=== PATIENT | male | born 1995 | race Caucasian/White ===

== ENCOUNTER 2017-06-17 19:07 | Emergency (ER) | payer SELFPAY ==
--- NOTE | 2017-06-17 19:42 | ED Physician Chart ---
ED Chief Complaint/HPI - Patient Information Date Seen:: 06/17/17 Time Seen:: 19:34 Chief Complaint:: Forehead rashes History of Present Illness:: 21 yo male had rashes on forehead for 3 days. Three days ago, patient went hiking, a few hours later, he developed rashes on the right forearm. Subsequently, the rashes appeared on the forehead. Per patient, it was probably due to his hand touched the forehead. The rashes were itchy and the itchiness spread to whole body. The worst symptoms occurred 2 days ago and gradually became better without medication. Allergies:: Allergies Allergy/AdvReac Type Severity Reaction Status Date / Time No Known Allergies Allergy Verified 06/17/17 19:14 Vitals:: Vital Signs - 8 hr 06/17/17 19:16 Temp 97.4 F HR 102 RR 15 BP 165/88 O2 Sat % 100 ED Review of Systems - Review of Systems General/Constitutional: No fever, No chills Skin: Skin lesions, Rash, Other (itchiness) Head: No headache Eyes: No pain ENT: No earache Neck: No neck pain Cardio Vascular: No chest pain Pulmonary: No SOB GI: No nausea, No vomiting Musculoskeletal: No bone or joint pain, No muscle pain ED Past Medical History - Past Medical History Past Medical History: No significant medical hx Social History: Non Smoker, No Alcohol, No Drug Use Surgical History: None Family Medical History - Family Member Mother History Unknown: Yes ED Physical Exam - Physical Examination General/Constitutional: Awake, Alert Eyes: PERRL Other Skin comments:: Forehead erythematous, linear vesicular lesions and surrounding irregular plaques. Erythematous and vesicular lesions on right antecubital area. Neck: No nuchal rigidity Respiratory: Clear to Auscultation Cardio Vascular: RRR, No murmur, gallop, rubs, NL S1 S2 GI: No tenderness/rebounding/guarding : No CVA tenderness Extremities: normal strength in all extremities Neuro/Psych: No focal deficits ED Assessment - Assessment General Assessment: Contact dermatitis forehead, right upper extremity Assessment/Comments:: D/c home Benadryl OTC 25mg PO q12h prn F/u PCP or return to ER if symptoms worsen ED Septic Shock - . Is Septic Shock (SBP<90, OR Lactate>4 mmol\L) present?: No - <6hrs of presentation: Vital Signs: Vital Signs - 8 hr 06/17/17 19:16 Temp 97.4 F HR 102 RR 15 BP 165/88 O2 Sat % 100 ED Reassessment (Disposition) - Reassessment Reassessment Condition:: Improved - Patient Disposition Discharge/Transfer:: Home ED Discharge Plan - Patient Disposition Admit/Discharge/Transfer: PT DISCHARGED HOME Condition at Disposition: Stable Instructions: Contact Dermatitis, [id number] Additional Instructions: follow up with your primary medical doctor shira may take benadryl 25mg as needed every 12 hours. Accepting Physician: UNKNOWN,PCP [Other] not on staff,PCP is [Primary Care Provider] - Forms: Work Release Form
== END 2017-06-17 20:07 | disposition home or self-care (01) ==
LOC: ER 19:07
DX: L25.9 Unspecified contact dermatitis, unspecified cause (principal)
CPT/HCPCS: Z7502